=== PATIENT | female | born 1965 | race Caucasian/White ===

== ENCOUNTER 2022-12-28 12:48 | Emergency (ER) | payer OTHER ==
--- NOTE | 2022-12-28 13:13 | ED Physician Documentation ---
PD HPI DYSPNEA - Stated complaint Stated Complaint: SOA - Chief complaint Chief Complaint: Resp - History obtained from History obtained from: Patient - Additional information Additional information: Patient is a 57-year-old female with a history of endometrial cancer present in her lungs presenting for evaluation of shortness of air that she has been feeling since yesterday. Patient recently flew in from [place] to visit family on Thursday. She is undergoing treatment in [place]. She is on immunotherapy and last had an infusion of Keytruda on Thursday. She reports having postnasal drainage and a nonproductive cough for the past 1 week.Has been having increasing shortness of breath for the past 2 days where she cannot catch her breath with little activity. She denies known fever. She denies any chest pain or tightness.She denies increased swelling or pain in her legs. She denies abdominal symptoms. Review of Systems Constitutional: denies: Fever Cardiac: denies: Chest pain / pressure Respiratory: reports: Dyspnea, Cough GI: denies: Abdominal Pain, Vomiting : denies: Dysuria Musculoskeletal: denies: Back pain Neurologic: denies: Headache PD PAST MEDICAL HISTORY - Allergies Allergies/Adverse Reactions: Allergies Allergy/AdvReac Type Severity Reaction Status Date / Time No Known Drug Allergies Allergy Verified 12/28/22 13:01 PD ED PE NORMAL - General General: Alert and oriented X 3, No acute distress, Well developed/nourished - HEENT HEENT: Atraumatic - Neck Neck: Supple, no meningeal sign - Cardiac Cardiac: RRR, No murmur - Respiratory Respiratory: Clear bilaterally, Other (Tachypneic with conversation) - Abdomen Abdomen: Normal bowel sounds, Soft, Non tender, Non distended - Derm Derm: Warm and dry - Extremities Extremities: No edema - Neuro Neuro: Normal speech Results - Vitals Vitals: Vital Signs - 24 hr 12/28/22 12/28/22 12/28/22 12:56 14:01 15:58 Temperature 35.9 C L 36.5 C Heart Rate 137 H 91 Respiratory 20 18 Rate Blood Pressure 157/89 H 146/104 H O2 Saturation 97 97 Oxygen O2 Source Room air - EKG (time done) 1316 EKG releavant findings:: EKG personally interpreted by author of this note. Relevant findings are: Rate 113, sinus tachycardia, no STEMI Rate: Rate (enter#) (113) Rhythm: Sinus tachycardia Intervals: No: Prolonged QT Ischemia: No: ST elevation c/w ischemia Compare to prior EKG: Old EKG unavailable - Labs Labs: Laboratory Tests 12/28/22 12/28/22 12/28/22 13:20 13:20 13:20 WBC 4.1 L RBC 4.52 Hgb 13.8 Hct 41.4 MCV 91.6 MCH 30.5 MCHC 33.3 RDW 14.7 Plt Count 174 MPV 9.0 Neut # (Auto) 2.7 Lymph # (Auto) 0.8 L Castro # (Auto) 0.4 Eos # (Auto) 0.2 Baso # (Auto) 0.0 Absolute Nucleated RBC 0.00 Nucleated RBC % 0.0 Sodium 138 Potassium 3.1 L Chloride 99 L Carbon Dioxide 27 Anion Gap 12.0 BUN 16 Creatinine 0.6 Estimated GFR (MDRD) 104 Glucose 119 H Lactic Acid Calcium 9.5 Magnesium 1.6 L Total Bilirubin 1.0 AST 42 ALT 52 Alkaline Phosphatase 89 Troponin I High Sens B-Natriuretic Peptide 8 Total Protein 7.5 Albumin 4.6 Globulin 2.9 Albumin/Globulin Ratio 1.6 Nasal Adenovirus (PCR) Nasal B. parapertussis DNA (PCR) Nasal Coronavir 229E PCR Nasal Coronavir HKU1 PCR Nasal Coronavir NL63 PCR Nasal Coronavir OC43 PCR Nasal Enterovir/Rhinovir PCR Nasal Influenza B PCR Nasal Influenza A PCR Nasal Parainfluen 1 PCR Nasal Parainfluen 2 PCR Nasal Parainfluen 3 PCR Nasal Parainfluen 4 PCR Nasal RSV (PCR) Nasal B.pertussis DNA PCR Nasal C.pneumoniae (PCR) Que Human Metapneumo PCR Nasal M.pneumoniae (PCR) Nasal SARS-CoV-2 (PCR) 12/28/22 12/28/22 12/28/22 13:20 13:20 13:44 WBC RBC Hgb Hct MCV MCH MCHC RDW Plt Count MPV Neut # (Auto) Lymph # (Auto) Castro # (Auto) Eos # (Auto) Baso # (Auto) Absolute Nucleated RBC Nucleated RBC % Sodium Potassium Chloride Carbon Dioxide Anion Gap BUN Creatinine Estimated GFR (MDRD) Glucose Lactic Acid 1.6 Calcium Magnesium Total Bilirubin AST ALT Alkaline Phosphatase Troponin I High Sens 4.0 B-Natriuretic Peptide Total Protein Albumin Globulin Albumin/Globulin Ratio Nasal Adenovirus (PCR) NOT DETECTED Nasal B. parapertussis DNA (PCR) NOT DETECTED Nasal Coronavir 229E PCR NOT DETECTED Nasal Coronavir HKU1 PCR NOT DETECTED Nasal Coronavir NL63 PCR NOT DETECTED Nasal Coronavir OC43 PCR NOT DETECTED Nasal Enterovir/Rhinovir PCR NOT DETECTED Nasal Influenza B PCR NOT DETECTED Nasal Influenza A PCR NOT DETECTED Nasal Parainfluen 1 PCR NOT DETECTED Nasal Parainfluen 2 PCR NOT DETECTED Nasal Parainfluen 3 PCR NOT DETECTED Nasal Parainfluen 4 PCR NOT DETECTED Nasal RSV (PCR) NOT DETECTED Nasal B.pertussis DNA PCR NOT DETECTED Nasal C.pneumoniae (PCR) NOT DETECTED Que Human Metapneumo PCR NOT DETECTED Nasal M.pneumoniae (PCR) NOT DETECTED Nasal SARS-CoV-2 (PCR) NOT DETECTED PD Medical Decision Making - ED course Complexity details: reviewed results, re-evaluated patient, d/w patient, d/w family ED course: Patient is a 57-year-old female presenting for evaluation of shortness of air. Patient has a history of endometrial cancer is on Keytruda with known lung Involvement. She is tachycardic on arrival but otherwise stable vital signs. Her EKG demonstrates a normal sinus rhythm. Labs were obtained including lactate, blood cultures x2, CBC, chemistries, troponin, BNP and chest x- ray.Chest x-ray Which I reviewed does not show any signs of overt consolidation or infiltrate or significant effusion.Patient has mild hypokalemia of 3.1 and hypomagnesemia of 1.6. Replacements were given. Troponin is negative. BNP is low. Given her cancer history, recent travel and tachycardia did obtain a CT angio of the chest to evaluate for pulmonary embolism. There is no signs of a pulmonary embolism. Her heart rate did improve and she is feeling much better after a liter of IV fluids. Respiratory swab is negative. She never required any oxygen. Repeated lung exams were still stable with no signs of wheezing or congestion. Patient is able to ambulate down the berman without any difficulty and no longer feels any shortness of air. I did attempt to reach out to her oncologist, Sara Lomax at [facility] in [place] but per the [place] there was no answer X3 attempts. Patient feels comfortable following up with her oncologist tomorrow. She will be staying here for the week. She is advised on concerning symptoms to return for. 1624 - Feeling significantly better. It was able to road test and walk the full length of the hallway without any difficulty and says her breathing feels significantly better. Departure - Departure Disposition: 01 Home, Self Care Clinical Impression: Dyspnea, Hypokalemia Condition: Stable Instructions: ED Dyspnea Shortness of Breath Comments: You were evaluated for shortness of breath today. The exact cause remains a bit unclear. It still could be related to a viral illness that we are not testing for Or that did not show up on our swab. Your CT scan is negative for signs of a blood clot.Potassium and magnesium were slightly low and you were given replacements. You are also given IV fluids. I would recommend close follow-up with your oncologist. I would also recommend taking it easy for the next day or 2. Please return to the emergency department if you develop any worsening symptoms at all. PROCEDURE: ANGIO CHEST W/WO FINDINGS: Image quality: Excellent. Large vessels: No filling defects within the opacified pulmonary arteries, accounting for motion and contrast timing. No evidence of acute aortic syndrome or aortic aneurysm. Lungs and pleura: Numerous pulmonary soft tissue nodules are seen, including a left lung apex nodule measuring 11 mm and a left anterior lingular nodule inferiorly measuring 21 x 18 mm. There is a small left-sided pleural effusion. No consolidation. No pneumothorax. Mediastinum: Enlarged confluent mediastinal lymph nodes are seen, including a left mediastinal/AP window group of lymph nodes that measures 7.5 x 4.2 cm. There is an additional subcarinal group of lymph nodes measuring 6 x 2.7 cm. Heart size is normal. No pericardial effusions. Incidental note is made of a common trunk off of the aorta of the right brachiocephalic artery and the left common carotid artery (bovine type aortic arch). This is considered to be a developmental variant of typically no clinical consequence. Chest wall and lower neck: The thyroid is not well seen. No axillary or supraclavicular adenopathy by size. Mammoplasty implants are incidentally noted. A right-sided chest port is seen, with the tip within the inferior aspect of the superior vena cava. Bones: No aggressive osseous abnormality. Age-appropriate degenerative changes are seen. Upper Abdomen: Cholecystectomy clips are seen. IMPRESSION: Negative for pulmonary embolism. Numerous pulmonary nodules are seen. By patient history, there is known metastatic endometrial cancer. Confluent metastatic mediastinal lymph nodes are also seen. Additional findings: Right-sided chest port Mammaplasty implants Bovine type aortic branching pattern Cholecystectomy Discharge Date/Time: 12/28/22 17:09
[2022-12-28 13:31] LABS: BASOPHILS % (AUTO) 0.5 %; EOSINOPHILS # (AUTO) 0.2 10^3/uL (0.0-0.7); EOSINOPHILS % (AUTO) 5.4 %; HCT - HEMATOCRIT 41.4 % (37.0-47.0); HGB - HEMOGLOBIN 13.8 g/dL (12.0-16.0); LYMPHOCYTES # (AUTO) 0.8 10^3/uL (1.5-3.5); LYMPHOCYTES % (AUTO) 18.9 %; MEAN CORPUSCULAR HEMOGLOBIN 30.5 pg (27.0-31.0); MEAN CORPUSCULAR HGB CONC 33.3 g/dL (32.0-36.0); MEAN CORPUSCULAR VOLUME 91.6 fL (81.0-99.0); MONOCYTES # (AUTO) 0.4 10^3/uL (0.0-1.0); MONOCYTES % (AUTO) 9.3 %; NEUTROPHILS # (AUTO) 2.7 10^3/uL (1.5-6.6); NEUTROPHILS % (AUTO) 65.7 %; PLT - PLATELET COUNT 174 10^3/uL (130-450); RED BLOOD COUNT 4.52 10^6/uL (4.20-5.40); RED CELL DISTRIBUTION WIDTH 14.7 % (12.0-15.0); WHITE BLOOD COUNT 4.1 x10^3/uL (4.8-10.8)
[2022-12-28 13:40] LABS: ALBUMIN 4.6 g/dL (3.2-5.5); ALBUMIN/GLOBULIN RATIO 1.6 (1.0-2.2); CALCIUM 9.5 mg/dL (8.5-10.3); CREATININE 0.6 mg/dL (0.4-1.0); MAGNESIUM 1.6 mg/dL (1.7-2.8); POTASSIUM 3.1 mmol/L (3.5-5.0); TOTAL PROTEIN 7.5 g/dL (6.7-8.2)
[2022-12-28] MEDS ORDERED: POTASSIUM CHLORIDE 20 MEQ TABLET PO STA (13:54)
[2022-12-28] MEDS ORDERED: iohexoL-300 100 ML VIAL ONE (14:00)
--- NOTE | 2022-12-28 14:09 | XRAY Report ---
PROCEDURE: Chest 1 View X-Ray INDICATIONS: Short of breath TECHNIQUE: One view of the chest was acquired. COMPARISON: None. FINDINGS: Surgical changes and devices: A right-sided chest port is seen, the tip overlying the superior aspec t of the superior vena cava, 4 cm above the cavoatrial junction. Lungs and pleura: Low lung volumes can be seen, causing a crowded appearance to the lung markings. M ild generalized interstitial prominence can be seen. No pneumothorax or large pleural effusion can be seen. Mediastinum: Mediastinal contours appear normal. Heart size is normal. Bones and chest wall: No suspicious bony lesions. Overlying soft tissues appear unremarkable. IMPRESSION: Generalized interstitial prominence can be seen. Differential diagnosis includes pulmonary edema and atypical/viral infection. No cardiomegaly is seen. Additional findings: Right-sided chest port Reviewed by: Sidney Kaufman MD on 12/28/2022 1:08 PM ADAMA Approved by: Sidney Kaufman MD on 12/28/2022 1:08 PM ADAMA Station ID: [id number]
[2022-12-28] MEDS ORDERED: SODIUM CHLORIDE 0.9% 1,000 ML IV STA (14:10)
[2022-12-28] MEDS ORDERED: iohexoL-300 100 ML VIAL IVP ONE (14:28)
[2022-12-28 14:50] LABS: B. PARAPERTUSSIS- RESP PCR PAN NOT DETECTED; B. PERTUSSIS- RESP PCR PANEL NOT DETECTED; C. PNEUMONIAE- RESP PCR PANEL NOT DETECTED; CORONAVIRUS 229E-RESP PCR NOT DETECTED; CORONAVIRUS HKU1-RESP PCR NOT DETECTED; CORONAVIRUS NL63-RESP PCR NOT DETECTED; CORONAVIRUS OC43-RESP PCR NOT DETECTED; HUMAN METAPNEUMOVIRUS NOT DETECTED; INFLUENZA A- RESP PCR PANEL NOT DETECTED; INFLUENZA B - RESP PCR PANEL NOT DETECTED; M. PNEUMONIAE- RESP PCR PANEL NOT DETECTED; PARAINFLUENZA VIRUS 1 NOT DETECTED; PARAINFLUENZA VIRUS 2 NOT DETECTED; PARAINFLUENZA VIRUS 3 NOT DETECTED; PARAINFLUENZA VIRUS 4 NOT DETECTED; RHINOVIRUS/ENTEROVIRUS NOT DETECTED; RSV- RESP PCR PANEL NOT DETECTED; SARS-CoV-2 -RESP PCR PANEL NOT DETECTED
--- NOTE | 2022-12-28 14:50 | CT Report ---
PROCEDURE: ANGIO CHEST W/WO INDICATIONS: SOA; endometrial CA in lungs CONTRAST: 80ml omni 300 TECHNIQUE: After the administration of intravenous contrast, 2 mm axial images were acquired from the pulmonary apices to the posterior costophrenic angles during the arterial phase. In addition, 1 mm lung kernel and 5 mm soft tissue kernel reconstructions were performed. 3-dimensional coronal oblique maximum int ensity projection (MIP) reformats, 8 mm axial MIP, and 5 mm coronal and sagittal MPR reformats were t hen performed through the thorax. For radiation dose reduction, the following was used: automated exp osure control, adjustment of mA and/or kV according to patient size. COMPARISON: Correlation is made with the accompanying chest plain film. FINDINGS: Image quality: Excellent. Large vessels: No filling defects within the opacified pulmonary arteries, accounting for motion and contrast timing. No evidence of acute aortic syndrome or aortic aneurysm. Lungs and pleura: Numerous pulmonary soft tissue nodules are seen, including a left lung apex nodule measuring 11 mm and a left anterior lingular nodule inferiorly measuring 21 x 18 mm. There is a small left-sided pleural effusion. No consolidation. No pneumothorax. Mediastinum: Enlarged confluent mediastinal lymph nodes are seen, including a left mediastinal/AP win loretta group of lymph nodes that measures 7.5 x 4.2 cm. There is an additional subcarinal group of lymph nodes measuring 6 x 2.7 cm. Heart size is normal. No pericardial effusions. Incidental note is made of a common trunk off of the aorta of the right brachiocephalic artery and th e left common carotid artery (bovine type aortic arch). This is considered to be a developmental vari ant of typically no clinical consequence. Chest wall and lower neck: The thyroid is not well seen. No axillary or supraclavicular adenopathy by size. Mammoplasty implants are incidentally noted. A right-sided chest port is seen, with the tip w ithin the inferior aspect of the superior vena cava. Bones: No aggressive osseous abnormality. Age-appropriate degenerative changes are seen. Upper Abdomen: Cholecystectomy clips are seen. IMPRESSION: Negative for pulmonary embolism. Numerous pulmonary nodules are seen. By patient history, there is known metastatic endometrial cancer . Confluent metastatic mediastinal lymph nodes are also seen. Additional findings: Right-sided chest port Mammaplasty implants Bovine type aortic branching pattern Cholecystectomy Reviewed by: Sidney Kaufman MD on 12/28/2022 1:48 PM AKDT Approved by: Sidney Kaufman MD on 12/28/2022 1:48 PM ADAMA Station ID: [id number]
[2022-12-28] MEDS ORDERED: MAGNESIUM SULFATE 2 GRAM 2 GM/50 ML BAG IV ONE (15:12)
[2022-12-28 15:58] VITALS: BP 146/104
== END 2022-12-28 17:09 | disposition home or self-care (01) ==
LOC: ED 12:48
DX: R06.00 Dyspnea, unspecified (principal); E87.6 Hypokalemia; Z20.822 Contact with and (suspected) exposure to COVID-19
CPT/HCPCS: 36415; 71045; 71275; 80053; 83605; 83735; 83880; 84484; 85025; 87040; 87633; 93005; 96365; 99284; A9270; Q9967